=== PATIENT | female | born 1975 | race African-American/Black ===

== ENCOUNTER 2024-02-21 16:36 | Emergency (ER) | payer SELFPAY ==
[~2024-02-21] VITALS: Ht 160 cm; Wt 74.1 kg
[2024-02-21 18:49] VITALS: TEMP 98.2
[2024-02-21] MEDS: HYDROmorphone HCL 2 MG/ML SYRINGE IM ONE (19:20)
[2024-02-21] MEDS: ONDANSETRON HCL 4 MG/2 ML VIAL IM ONE (19:20)
[2024-02-21] MEDS: CYCLOBENZAPRINE HCL 10 MG TABLET PO ONE (19:20)
[2024-02-21 20:21] VITALS: PULSE 97
[2024-02-21 20:50] VITALS: BP 153/90; RESP 20
[2024-02-21] MEDS ORDERED: IBUP-1554 PO (21:56)
[2024-02-21] MEDS ORDERED: CYCL-448 PO (21:56)
[2024-02-21] MEDS ORDERED: HYDR-4062 PO (21:56)
== END 2024-02-21 22:21 | disposition home or self-care (01) ==
LOC: EMS 17:06
DX: S33.5XXA Sprain of ligaments of lumbar spine, initial encounter (principal); S30.0XXA Contusion of lower back and pelvis, initial encounter; G89.29 Other chronic pain; M54.9 Dorsalgia, unspecified; E11.9 Type 2 diabetes mellitus without complications; I10 Essential (primary) hypertension; F41.9 Anxiety disorder, unspecified; F32.A Depression, unspecified; Z90.710 Acquired absence of both cervix and uterus; Z88.1 Allergy status to other antibiotic agents; Z88.4 Allergy status to anesthetic agent; Z91.040 Latex allergy status; V89.2XXA Person injured in unspecified motor-vehicle accident, traffic, initial encounter; Y93.89 Activity, other specified; Y92.89 Other specified places as the place of occurrence of the external cause; Y99.8 Other external cause status
CPT/HCPCS: 99284; 72040; 72070; 72100; 96372; J1170; J2405